=== PATIENT | male | born 1965 | race Caucasian/White ===

== ENCOUNTER → 2017-07-02 | Day surgery (SDC) | payer OTHER ==
[~2017-07-02] MED LIST: DEXAMETHASONE 4 MG/ML VIAL ONE; DIAZEPAM 10 MG/2 ML SYR IVP ONE; GLUCAGON HCL 1 MG VIAL IVP ONE; LABETALOL HCL 5 MG/ML 20 ML MDV IVP PRN; LIDOCAINE 2% 5 ML SDV ONE; MIDAZOLAM 2 MG/2 ML VIAL ONE; NALOXONE HCL 0.4 MG/ML INJ IVP PRN; NS 1,000 ML IV ONE; ONDANSETRON 4 MG/2 ML VIAL IVP ONE; ONDANSETRON 4 MG/2 ML VIAL ONE; PROMETHAZINE HCL 25 MG/ML INJ IVP PRN; PROPOFOL/EMULSION 500 MG/50 ML BOTTLE IV ONE; SUCCINYLCHOLINE CHLORIDE 200 MG/10 ML SYR IVP ONE; fentaNYL 100 MCG/2 ML INJ IVP PRN; fentaNYL 100 MCG/2 ML INJ ONE
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
--- NOTE | 2017-07-02 20:16 | GIREPORT ---
[facility] Surgical Services - Endoscopy Department Patient Name: Fabrizio Reyes Procedure Date: 07/02/2017 7:27 PM Patient Type: Emergency Department Attending MD/ ER Physician: Steffany Breaux Procedure: Upper GI endoscopy Indications: Dysphagia, Foreign body in the esophagus Providers: Nick Garibay MD Medicines: General Anesthesia Complications: No immediate complications. Estimated blood loss: Minimal. Description of Procedure: After obtaining informed consent, the endoscope was passed under direct vision. Throughout the procedure, the patient's blood pressure, pulse, and oxygen saturations were monitored continuously. The Endoscope was intro duced through the mouth, and advanced to the third part of duodenum. The uppe r GI endoscopy was accomplished without difficulty. The patient tolerated th e procedure well. Findings: Mucosal changes including ringed esophagus, small-caliber esophagus, wh ite plaques and circumferential folds were found in the entire esophagus. Biopsies were obtained from the proximal and distal esophagus with cold forceps for histology of suspected eosinophilic esophagitis. Estimated blood loss was minimal. Ibuprofen pills were found at the gastroesophageal junction. Removal wa s accomplished with a regular forceps. Estimated blood loss was minimal. One severe benign-appearing, intrinsic stenosis was found in the lower third of the esophagus. And was traversed after dilation. A TTS dilator was p assed through the scope. Dilation with a 10-11-12 mm x 5.5 cm CRE balloon dil ator was performed to 12 mm. The dilation site was examined and showed moder ate improvement in luminal narrowing. Estimated blood loss was minimal. The entire examined stomach was normal. Diffuse and scattered moderate inflammation characterized by erosions, erythema and friability was found in the duodenal bulb, in the first po rtion of the duodenum and in the second portion of the duodenum. Biopsies wer e taken with a cold forceps for histology. Estimated blood loss was minim al. The exam was otherwise without abnormality. Estimated Blood Loss: Estimated blood loss was minimal. Post Op Diagnosis: - Esophageal mucosal changes suggestive of eosinophilic esophagitis. Biopsied. - Ibuprofen pills were found in the esophagus. Removal was successful. - Benign-appearing esophageal stenosis. Dilated. - Normal stomach. - Duodenitis. Biopsied. - The examination was otherwise normal. Recommendation: - Cut food into small pieces and chew well. - Await pathology results. - My office will call with the pathology result with 5-7 days. If you h ave not heard from my office by 05-27, do not assume the pathology is naty l, please call [phone] to get the pathology results. - Pending biopsy results I may want a trial of swallowed not inhaled fluticasone. Remove spacer and place two jets of liquid into back of th roat and swallow. then nothing by mouth for 30 minutes. Use twice per day, morning and evening. However, if he has more eosinophils distally then proximally, he may have PPI responsive EoE and may not need any steroid treatment. - Use Protonix (pantoprazole) 40 mg PO daily. Take 30-60 minutes before breakfast. - Avoid Aspirin and NSAID's for 7-10 days except as used for cardiac or stroke prevention. - Repeat upper endoscopy in 2 weeks for retreatment. - Perform a colonoscopy at appointment to be scheduled. - Discharge patient to home (ambulatory). - Return to endoscopist in 8 weeks. - Return to primary care physician as previously scheduled. - Thank you for allowing me to help in your patient's care. Do not hesi ceron to call with any questions. Attending Participation: I personally performed the entire procedure. [place] Romero M.D Nick Garibay MD 07/02/2017 8:15:30 PM This report has been signed electronicallyMathew MD [place] Number of Addenda: 0 Note Initiated On: 07/02/2017 7:27 PM [email or web address]
--- NOTE | 2017-07-02 20:24 | POSTANESTH ---
Post Anesthetic Evaluation Cardiovascular Status: Normal, Stable Respiratory Status: Normal, Stable Level of Consciousness/Mental Status: Can Participate in Eval Pain Control: Adequate, Prn Tx Ordered Nausea/Vomiting Control: Adequate, Prn Tx Ordered Complications Possibly Related to Anesthesia: None Noted
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
[2017-07-02 21:00] VITALS: PULSE 73; TEMP 97.7
[2017-07-02 21:16] VITALS: BP 127/89; RESP 18; O2SAT 95
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
== END | disposition home or self-care (01) ==
LOC: CED 18:00 → FSGY 19:17
PROVIDERS: ATTEND Internal Medicine Gastroenterology
PROC: 0DB28ZX Excision of Middle Esophagus, Via Natural or Artificial Opening Endoscopic, Diagnostic (ICD-10-PCS; principal; 2017-07-02 07:30)
PROC: 0DB38ZX Excision of Lower Esophagus, Via Natural or Artificial Opening Endoscopic, Diagnostic (ICD-10-PCS; principal; 2017-07-02 07:30)
PROC: 0DB98ZX Excision of Duodenum, Via Natural or Artificial Opening Endoscopic, Diagnostic (ICD-10-PCS; principal; 2017-07-02 07:30)
PROC: 0D738ZZ Dilation of Lower Esophagus, Via Natural or Artificial Opening Endoscopic (ICD-10-PCS; principal; 2017-07-02 07:30)
PROC: 0DC48ZZ Extirpation of Matter from Esophagogastric Junction, Via Natural or Artificial Opening Endoscopic (ICD-10-PCS; principal; 2017-07-02 07:30)
DX: T18.198A Other foreign object in esophagus causing other injury, initial encounter (principal); K20.0 Eosinophilic esophagitis; K29.80 Duodenitis without bleeding; A60.02 Herpesviral infection of other male genital organs
CPT/HCPCS: 43239; 43247; 43249; C1726; J0330; J1100; J2250; J2405; J2704; J3010